=== PATIENT | female | born 1985 | race Caucasian/White ===

== ENCOUNTER 2017-11-23 12:13 | Emergency (ER) | payer MEDICAID ==
[~2017-11-23] VITALS: Ht 175.3 cm; Wt 85.0 kg
[~2017-11-23 12:13] MED LIST: FLUC150T PO; METR-1 PO
[2017-11-23 12:14] VITALS: BP 130/64; PULSE 92; RESP 16; TEMP 99; O2SAT 100
--- NOTE | 2017-11-23 12:37 | PD ---
HPI Chief Complaint: Supplier Engineer Problem/Complaint Time Seen by Provider: 12:29 Travel History International Travel<30 days: No Contact w/Intl Traveler<30days: No Traveled to known affect area: No History of Present Illness HPI This 32-year-old female has noted increasing vaginal discharge over the last few days. She was treated here for bacterial vaginosis a few months ago she has not had a period this month but has taken 2 test was negative. She is not having pain. [facility] Past Medical History Medical History: Denies Significant Hx Diminished Hearing: No Kidney Stones: Yes Immunizations Current: Yes Tetanus Vaccination: Unknown Influenza Vaccination: No ?: Unknown LMP: 10/18/17 : 3 Para: 1 Miscarriage: 1 Past Surgical History Surgical History: No Previous Surgery Social History Alcohol Use: Yes (RARELY) Tobacco Use: Yes (1/2 PPD) Substance Use: No Allergies-Medications (Allergen,Severity, Reaction): Coded Allergies: diphenhydramine (Unverified Allergy, Mild, Restlessness, 11/23/17) Reported Meds & Prescriptions Reported Meds & Active Scripts Active No Active Prescriptions or Reported Medications Review of Systems Except as stated in HPI: all other systems reviewed are Neg General / Constitutional: No: Fever, Chills Respiratory: No: Cough Gastrointestinal: No: Vomiting, Diarrhea Genitourinary: Positive: Discharge, No: Pelvic Pain Skin: No Rash, No Itching Physical Exam Narrative GENERAL: Well-developed female SKIN: Focused skin assessment warm/dry. HEAD: Atraumatic. Normocephalic. EYES: Pupils equal and round. No scleral icterus. No injection or drainage. ENT: No nasal bleeding or discharge. Mucous membranes pink and moist. NECK: Trachea midline. No JVD. GASTROINTESTINAL: Abdomen soft, non-tender, nondistended. Hepatic and splenic margins not palpable. : There is a moderate amount of yellowish discharge. There is no pain with the cervix. There are no masses palpable MUSCULOSKELETAL: No obvious deformities. No clubbing. No cyanosis. No edema. NEUROLOGICAL: Awake and alert. No obvious cranial nerve deficits. Motor grossly within normal limits. Normal speech. PSYCHIATRIC: Appropriate mood and affect; insight and judgment normal. Data Data Last Documented VS Vital Signs Date Time Temp Pulse Resp B/P (MAP) Pulse Ox O2 Delivery O2 Flow Rate FiO2 11/23/17 12:14 99.0 92 16 130/64 (86) 100 Orders Orders Gc And Chlamydia Pcr (11/23/17 12:33) Wet Prep Profile (11/23/17 12:33) Ed Urine Pregnancytest Poc (11/23/17 12:33) Labs Laboratory Tests Test 11/23/17 12:40 Clue Cells (Wet Prep) NONE SEEN Vaginal Trichomonas (Wet Prep) NONE SEEN Vaginal Yeast (Wet Prep) NONE SEEN MDM Medical Decision Making Medical Screen Exam Complete: Yes Emergency Medical Condition: Yes Medical Record Reviewed: Yes Differential Diagnosis Differential includes vaginitis, bacterial vaginosis, Trichomonas Narrative Course Patient clearly has vaginitis on examination. No wet prep is negative. She will be given prescription for Flagyl to use empirically Diagnosis Primary Impression: Vaginitis Scripts Metronidazole (Flagyl) 500 Mg Tab 500 MG PO TID for Infection for 7 Days, TAB 0 Refills Prov: Rodolfo Fonseca MD 11/23/17 Disposition: 01 DISCHARGE HOME Condition: Stable Rodolfo Fonseca MD Nov 23, 2017 12:37
[2017-11-23] MEDS ORDERED: METR-1 PO (13:10)
[2017-11-23] MEDS ORDERED: DIFL150T PO (13:13)
== END 2017-11-23 13:22 | disposition home or self-care (01) ==
LOC: PHED 12:13
DX: N76.0 Acute vaginitis (principal); F17.200 Nicotine dependence, unspecified, uncomplicated
CPT/HCPCS: 84703; 87210; 87491; 87591; 99284

== ENCOUNTER 2018-02-27 16:44 | Emergency (ER) | payer MEDICAID ==
[~2018-02-27] VITALS: Ht 175.3 cm; Wt 86.0 kg
[~2018-02-27 16:44] MED LIST changes: +DIFL150T PO; -FLUC150T PO
[2018-02-27 16:49] VITALS: BP 122/59; PULSE 76; RESP 16; TEMP 97.9; O2SAT 98
[2018-02-27] MEDS ORDERED: ACETAMINOPHEN/HYDROcodone 325 MG/5 MG TAB PO ONE (17:00)
[2018-02-27] MEDS ORDERED: LIDO1SOL8 SWISH-SPIT (17:07)
[2018-02-27] MEDS ORDERED: IBUP1TAB7 PO (17:07)
[2018-02-27] MEDS ORDERED: PENI500T PO (17:07)
--- NOTE | 2018-02-27 17:10 | PD ---
HPI Chief Complaint: Oral / Dental Pain or Problem Time Seen by Provider: 16:51 Travel History International Travel<30 days: No Contact w/Intl Traveler<30days: No Traveled to known affect area: No History of Present Illness HPI 32-year-old female presents emergency department with left lower gum swelling that started yesterday. Patient states that she has had moderate severe pain, constant and decided to come to emergency department today. Patient states that she has been using saltwater gargles, and Ambusol, and ibuprofen without relief. Says that approximately 1 month ago she had a very similar episode that apparently opened on its own and she was able to express pus however, says that she has had an unusual taste but has not noticed any pus coming out this time. Says she had a root canal 10 years ago and has been having chronic problems with her teeth and gums since then. She denies fever, chills, abdominal pain. Patient smokes half a pack of cigarettes daily. Patient denies alcohol use. She denies chronic medical issues medication use. PFSH Past Medical History Diminished Hearing: No Kidney Stones: Yes Immunizations Current: Yes ?: Not LMP: 02/20/18 : 3 Para: 1 Miscarriage: 1 Social History Alcohol Use: Yes (RARELY) Tobacco Use: Yes (1/2 PPD) Substance Use: No Allergies-Medications (Allergen,Severity, Reaction): Coded Allergies: diphenhydramine (Unverified Allergy, Mild, Restlessness, 02/27/18) Reported Meds & Prescriptions Reported Meds & Active Scripts Active Penicillin V Potassium 500 Mg Tab 500 Mg PO Q8H 10 Days Lidocaine Viscous Liq 2 % Liqd 5 Ml SWISH-SPIT QID PRN Mix with equal parts of Maalox (or generic version of Maalox). Swish and spit. For pain. Ibuprofen 800 Mg Tab 800 Mg PO Q8H PRN 7 Days Avoid other antiinflammatories while taking this medication. Take with food. Review of Systems Except as stated in HPI: all other systems reviewed are Neg Physical Exam Narrative GENERAL: Well-nourished, well-developed patient, in mild distress SKIN: Focused skin assessment warm/dry. HEAD: Normocephalic. Poor dentition, left lower cuspid and bicuspid region-slight bulging of the gums without fluctuance. No exudates noted. EYES: No scleral icterus. No injection or drainage. NECK: Supple, trachea midline. No JVD or lymphadenopathy. CARDIOVASCULAR: Regular rate and rhythm without murmurs, gallops, or rubs. RESPIRATORY: Breath sounds equal bilaterally. No accessory muscle use. GASTROINTESTINAL: Abdomen soft, non-tender, nondistended. MUSCULOSKELETAL: No cyanosis, or edema. BACK: Nontender without obvious deformity. No CVA tenderness. Data Data Last Documented VS Vital Signs Date Time Temp Pulse Resp B/P (MAP) Pulse Ox O2 Delivery O2 Flow Rate FiO2 02/27/18 16:49 97.9 76 16 122/59 (80) 98 Orders Orders Acetamin-Hydrocod 325-5 Mg ([place] 5-325 (02/27/18 17:00) Ed Discharge Order (02/27/18 17:10) [facility] Medical Decision Making Medical Screen Exam Complete: Yes Emergency Medical Condition: Yes Differential Diagnosis Dental infection, abscess, pulpitis Narrative Course 32-year-old female presents emergency department with left lower gum swelling that started yesterday. Patient states that she has had moderate severe pain, constant and decided to come to emergency department today. Patient states that she has been using saltwater gargles, and Ambusol, and ibuprofen without relief. Says that approximately 1 month ago she had a very similar episode that apparently opened on its own and she was able to express pus however, says that she has had an unusual taste but has not noticed any pus coming out this time. Says she had a root canal 10 years ago and has been having chronic problems with her teeth and gums since then. She denies fever, chills, abdominal pain. Patient smokes half a pack of cigarettes daily. Patient denies alcohol use. She denies chronic medical issues medication use. Vital signs stable. Exam findings consistent with a dental infection. No evidence of abscess or reason to I&D today. Patient will be prescribed penicillin, ibuprofen, and lidocaine viscous. Patient is allergic to Benadryl so will avoid Magic mouthwash. Patient advised to follow-up with a primary care physician and dentist. Return to the emergency department for worsening or persistent symptoms. Diagnosis Primary Impression: Dental infection Referrals: [facility] Dentist Departure Forms: Tests/Procedures, Work Release Enter return to work date: Mar 01, 2018 Additional Instructions: Take medications as prescribed. Consider [facility] for your medication fills as they may assist you. Continue salt water gargles. Scripts Penicillin V Potassium (Penicillin V Potassium) 500 Mg Tab 500 MG PO Q8H for Infection for 10 Days, #30 TAB 0 Refills Prov: Latanya Teague DO 02/27/18 Lidocaine Viscous Liq (Lidocaine Viscous Liq) 2 % Liqd 5 ML SWISH-SPIT QID Y for PAIN, #1 BOTTLE 0 Refills Mix with equal parts of Maalox (or generic version of Maalox). Swish and spit. For pain. Prov: Latanya Teague DO 02/27/18 Ibuprofen (Ibuprofen) 800 Mg Tab 800 MG PO Q8H Y for Pain/Inflammation for 7 Days, #21 TAB 0 Refills Avoid other antiinflammatories while taking this medication. Take with food. Prov: Latanya Teague DO 02/27/18 Disposition: 01 DISCHARGE HOME Condition: Stable Agatha Merino Feb 27, 2018 17:09
== END 2018-02-27 17:36 | disposition home or self-care (01) ==
LOC: PHEFT 16:44
DX: K04.7 Periapical abscess without sinus (principal); F17.210 Nicotine dependence, cigarettes, uncomplicated; Z87.442 Personal history of urinary calculi; Z88.8 Allergy status to other drugs, medicaments and biological substances; Z79.899 Other long term (current) drug therapy
CPT/HCPCS: 99283

== ENCOUNTER 2018-03-02 00:23 | Emergency (ER) | payer MEDICAID ==
[~2018-03-02] VITALS: Ht 175.3 cm; Wt 88.8 kg
[~2018-03-02 00:23] MED LIST changes: -DIFL150T PO; +IBUP1TAB7 PO; +LIDO1SOL8 SWISH-SPIT; -METR-1 PO; +PENI500T PO
[2018-03-02 00:35] VITALS: BP 122/69; PULSE 90; RESP 18; TEMP 98.7; O2SAT 97
[2018-03-02] MEDS ORDERED: TRAM50TA PO (01:49)
--- NOTE | 2018-03-02 01:50 | PD ---
HPI Chief Complaint: Oral / Dental Pain or Problem Time Seen by Provider: 01:41 Travel History International Travel<30 days: No Contact w/Intl Traveler<30days: No Traveled to known affect area: No History of Present Illness HPI 32-year-old female presents to the emergency department by private transportation for evaluation of dental pain. Patient states she was seen by the dentist today who told her that she needed to complete her course of antibiotic and follow-up with him on Sunday to have dental extraction. Patient does not report any fever or chills. Patient reports localized dental and jaw pain consistent with dentition of #21 and #22. Patient was seen by dentist today who told her that she needed to increase her dose of penicillin from 3 times daily to 4 times daily. Patient has been taking the antibiotic as prescribed since Sunday. Patient is here because of dental pain reportedly not responding to warm salt water gargles Anbesol and ibuprofen. Patient is very upset and tearful. Patient denies other concerns or complaints. Patient reports she has had a previous episode with this area of dentition approximately a month ago. Patient states approximately 1 to go she had spontaneous drainage. Patient states after she saw the dentist today she tried to jasmeet the area on her own with a needle. Patient states she notes swelling to the jaw and face area. No report of difficulty swallowing or difficulty with speaking or any respiratory issues per [facility] Past Medical History Narrative Medical Immunizations current, root canal; occasional alcohol use tobacco use; nursing notes reviewed Diminished Hearing: No Kidney Stones: Yes Immunizations Current: Yes Tetanus Vaccination: Unknown Influenza Vaccination: No ?: Not LMP: february 20 : 3 Para: 1 Miscarriage: 1 Past Surgical History Oral Surgery: Yes (root canal) Social History Alcohol Use: Yes (RARELY) Tobacco Use: Yes (1/2 PPD) Substance Use: No Allergies-Medications (Allergen,Severity, Reaction): Coded Allergies: diphenhydramine (Unverified Allergy, Mild, Restlessness, 03/02/18) Reported Meds & Prescriptions Reported Meds & Active Scripts Active Penicillin V Potassium 500 Mg Tab 500 Mg PO Q8H 10 Days Ibuprofen 800 Mg Tab 800 Mg PO Q8H PRN 7 Days Avoid other antiinflammatories while taking this medication. Take with food. Review of Systems Except as stated in HPI: all other systems reviewed are Neg General / Constitutional: No: Fever HENT: Positive: Dental Difficulties, No: Congestion Cardiovascular: No: Chest Pain or Discomfort Respiratory: No: Shortness of Breath Gastrointestinal: No: Abdominal Pain Genitourinary: No: Flank Pain Skin: No Rash Neurologic: No: Weakness Psychiatric: Positive: Anxiety Hematologic/Lymphatic: No: Lymph Node Enlargement Physical Exam Narrative GENERAL: Well-developed well-nourished female intermittently tearful and crying SKIN: Warm and dry. HEAD: Normocephalic. EYES: No scleral icterus. No injection or drainage. ENT: Mucous membranes moist airways patent attention left mandible mild soft tissue swelling nonfluctuant no erosion or caries but discomfort to palpation along the gumline and the cost of the #21 and #22 dentition. Other dentition with dental caries. No submandibular soft tissue swelling tenderness or lymphadenopathy. Trachea is midline. NECK: Supple, trachea midline. No JVD or lymphadenopathy. Data Data Last Documented VS Vital Signs Date Time Temp Pulse Resp B/P (MAP) Pulse Ox O2 Delivery O2 Flow Rate FiO2 03/02/18 00:35 98.7 90 18 122/69 (86) 97 MDM Medical Decision Making Medical Screen Exam Complete: Yes Emergency Medical Condition: Yes Medical Record Reviewed: Yes Differential Diagnosis Dentalgia, dental abscess, dental infection Narrative Course Patient presents with dental pain after recurrence of dental pain from original exacerbation 1 month ago currently on penicillin and ibuprofen and reportedly seen by a dentist today with recommendation to increase her penicillin dose and follow-up 1 week for dental extraction. Patient has area of mild soft tissue swelling but nonfluctuant nothing for I&D. We will give her a one-time dose of Lortab in the emergency department and she is to continue with oral antibiotic. Patient is encouraged to follow-up with her dentist on Sunday. Diagnosis Primary Impression: Dentalgia Referrals: Dentist 3 days Patient Instructions: Narcotic given in the ED, General Instructions Additional Instructions: follow up with your dentist Complete course of antibiotic Continuous ibuprofen may take 800 mg as often as every 8 hours but no more frequently than every 8 hours Use Orajel or Anbesol per package directions Use warm salt water gargles and swish do not swallow salt water Follow-up with dentist on Sunday Return to the emergency department for any concerns or change in condition Med/Other Pt SpecificInfo: Prescription(s) given Scripts Tramadol (Tramadol) 50 Mg Tab 50 MG PO Q6H Y for PAIN, #5 TAB 0 Refills Prov: Renetta Kim MD 03/02/18 Disposition: 01 DISCHARGE HOME Condition: Stable Renetta Kim MD Mar 02, 2018 01:50
[2018-03-02] MEDS ORDERED: ACETAMINOPHEN/HYDROcodone 325 MG/5 MG TAB PO ONE (02:00)
[2018-03-02 02:06] VITALS: BP 107/68; PULSE 75; RESP 16; O2SAT 98
[2018-03-02] MEDS ORDERED: NORC5TAB PO (21:51)
== END 2018-03-02 02:52 | disposition home or self-care (01) ==
LOC: PHED 00:23
DX: K08.89 Other specified disorders of teeth and supporting structures (principal); F17.210 Nicotine dependence, cigarettes, uncomplicated
CPT/HCPCS: 99283

== ENCOUNTER 2018-03-02 20:44 | Emergency (ER) | payer MEDICAID ==
[~2018-03-02 20:44] MED LIST changes: +TRAM50TA PO
[2018-03-02 20:57] VITALS: BP 110/66; PULSE 70; RESP 16; TEMP 99.2; O2SAT 96
[2018-03-02] MEDS ORDERED: NORC5TAB PO (21:51)
--- NOTE | 2018-03-02 21:52 | PD ---
HPI Chief Complaint: Oral / Dental Pain or Problem Time Seen by Provider: 21:38 Travel History International Travel<30 days: No Contact w/Intl Traveler<30days: No Traveled to known affect area: No History of Present Illness HPI The patient is a 32-year-old female who presents to the emergency department for pain and swelling along the left lower gumline. The patient states the swelling started 5 days ago. She is seen 2 separate dentist who stated it was not an infection of the tooth, was an infection of the gum and she need to follow-up with a "gum specialist ". The patient has been taking penicillin Flagyl, was changed to clindamycin which she will start taking tomorrow. She does note increasing swelling from the affected area. She denies any fever, chills, or sweats. She was administered Lortab last night which did help her pain. She has been taking ibuprofen and Tylenol with codeine at home without any alleviation of her symptoms. PFSH Past Medical History Diminished Hearing: No Kidney Stones: Yes Immunizations Current: Yes ?: Not LMP: 02/20/18 : 3 Para: 1 Miscarriage: 1 Past Surgical History Surgical History: No Previous Surgery Oral Surgery: Yes (root canal) Social History Alcohol Use: Yes (RARELY) Tobacco Use: Yes (1/2 PPD) Substance Use: No Allergies-Medications (Allergen,Severity, Reaction): Coded Allergies: diphenhydramine (Unverified Allergy, Mild, Restlessness, 03/02/18) Reported Meds & Prescriptions Reported Meds & Active Scripts Active Tramadol (Tramadol HCl) 50 Mg Tab 50 Mg PO Q6H PRN Penicillin V Potassium 500 Mg Tab 500 Mg PO Q8H 10 Days Ibuprofen 800 Mg Tab 800 Mg PO Q8H PRN 7 Days Avoid other antiinflammatories while taking this medication. Take with food. Review of Systems Except as stated in HPI: all other systems reviewed are Neg General / Constitutional: No: Fever HENT: Positive: Dental Difficulties Gastrointestinal: No: Nausea, Vomiting Physical Exam Narrative GENERAL: Awake, alert, 32-year-old female who appears her stated age and is in no acute respiratory distress. SKIN: Focused skin assessment warm/dry. HEAD: Atraumatic. Normocephalic. EYES: Pupils equal and round. No scleral icterus. No injection or drainage. ENT: No nasal bleeding or discharge. Inspection of the dentition reveals swelling along the left lower gumline near tooth #21 and 22. There is a palpable abscess which has come to ahead. Palpation of the abscess expressed purulent drainage from the abscess. NECK: Trachea midline. No JVD. MUSCULOSKELETAL: No obvious deformities. No clubbing. No cyanosis. No edema. NEUROLOGICAL: Awake and alert. No obvious cranial nerve deficits. Motor grossly within normal limits. Normal speech. PSYCHIATRIC: Appropriate mood and affect; insight and judgment normal. Data Data Last Documented VS Vital Signs Date Time Temp Pulse Resp B/P (MAP) Pulse Ox O2 Delivery O2 Flow Rate FiO2 03/02/18 20:57 99.2 70 16 110/66 (81) 96 Orders Orders Acetamin-Hydrocod 325-5 Mg ([place] 5-325 (03/02/18 22:00) MDM Medical Decision Making Medical Screen Exam Complete: Yes Emergency Medical Condition: Yes Medical Record Reviewed: Yes Differential Diagnosis Differential diagnosis includes dental abscess, ANUG, gingivitis, oropharyngeal abscess, osteomyelitis. Narrative Course The patient has a visible abscess with fluctuance along the left gumline near tooth 21 and 22. Gentle pressure of the affected area express some purulent drainage. The patient is advised to continue massaging the affected area to help drain, warm salt water gargles, and continue antibiotics as previously directed. She is advised to follow-up with [facility] symptoms persist. She was administered [place] one time in the emergency department and I will write for 10 tablets. Diagnosis Primary Impression: Dental abscess Patient Instructions: General Instructions Additional Instructions: Continue antibiotics as previously directed. Follow-up with [facility] if symptoms persist. Warm salt water gargles. Continue to massage the area gently to help drain. Med/Other Pt SpecificInfo: Prescription(s) given Scripts Hydrocodone-Acetaminophen ([place]) 5 Mg-325 Mg Tab 1 TAB PO Q6H Y for PAIN, #10 TAB 0 Refills Prov: Pineda Toibas MD 03/02/18 Disposition: 01 DISCHARGE HOME Condition: Stable Pineda Tobias MD Mar 02, 2018 21:52
[2018-03-02] MEDS ORDERED: ACETAMINOPHEN/HYDROcodone 325 MG/5 MG TAB PO ONE (22:00)
== END 2018-03-02 22:21 | disposition home or self-care (01) ==
LOC: NEPD 20:44
DX: K04.7 Periapical abscess without sinus (principal); F17.200 Nicotine dependence, unspecified, uncomplicated; Z87.442 Personal history of urinary calculi; Z88.8 Allergy status to other drugs, medicaments and biological substances
CPT/HCPCS: 99283